=== PATIENT | male | born 1955 | race Caucasian/White ===

== ENCOUNTER → 2018-10-03 | Outpatient (CLI) | payer OTHER | END | disposition home or self-care (01) | LOC: LABPV 07:13 | PROVIDERS: ATTEND Internal Medicine Geriatric Medicine | DX: E78.5 Hyperlipidemia, unspecified (principal) ==

== ENCOUNTER → 2018-11-08 | Outpatient (CLI) | payer OTHER ==
[2018-11-08 08:40] VITALS: BP_SYST 108; BP_SYST 117; BP_DIAS 69; BP_DIAS 70
[2018-11-08 09:20] VITALS: BP 127/66
== END | disposition home or self-care (01) ==
LOC: CARDMN 08:30
PROVIDERS: ATTEND Internal Medicine Cardiovascular Disease
DX: I25.89 Other forms of chronic ischemic heart disease (principal); I50.1 Left ventricular failure, unspecified
CPT/HCPCS: 93017; 93306